=== PATIENT | male | born 1980 | race Two or more races ===

== ENCOUNTER 2021-10-26 19:57 | Inpatient (IN) | payer OTHER ==
[~2021-10-26] VITALS: Ht 175.3 cm; Wt 72.6 kg
[2021-10-26 22:46] LABS: BASOPHILS % 0.6 % (0.0-2.0); HEMATOCRIT. 47.2 % (42.0-52.0); HEMOGLOBIN. 16.2 g/dL (14.0-18.0); LYMPHOCYTES % 35.2 % (20.0-50.0); MEAN CORPUSCULAR HEMOGLOBIN 32.1 pg (28.0-32.0); MEAN CORPUSCULAR VOLUME 93.2 fL (80.0-94.0); MEAN PLATELET VOLUME 9.6 fl (7.4-10.4); MONOCYTES % 10.7 % (2.0-8.0); NEUTROPHILS % 51.5 % (40.0-76.0); PLATELET 224 x1000/uL (130-400); RED BLOOD CELL COUNT 5.06 mill/uL (4.7-6.1); RED CELL DISTRIBUTION WIDTH 12.7 % (11.6-14.6)
[2021-10-26 22:50] LABS: CHLORIDE 109 mEq/L (98-107)
[2021-10-26 22:53] LABS: ETHANOL BLOOD < 10 mg/dL
[2021-10-27] MEDS ORDERED: HYDROCODONE/ACETAMINOPHEN 5/325MG TABLET PO STA (01:45)
[2021-10-27] MEDS ORDERED: KETOROLAC 60MG/2ML VIAL IM STA (01:45)
[2021-10-27] MEDS ORDERED: ACETAMINOPHEN 325MG TABLET PO PRN (05:30)
[2021-10-27] MEDS ORDERED: LEVETIRACETAM 500MG PREMIX 100 ML IV ONE (05:45)
[2021-10-27] MEDS ORDERED: LORAZEPAM 2MG/ML CPJ IV NR (09:15)
[2021-10-27] MEDS ORDERED: LEVETIRACETAM 500 MG in SODIUM CHLORIDE 0.9% 100 ML IV SCH (09:30)
[2021-10-27] MEDS ORDERED: ONDANSETRON HCL 4MG/2ML INJ IV PRN (09:30)
[2021-10-27 15:51] VITALS: BP 105/67
[2021-10-27 18:00] VITALS: BP 105/66
[2021-10-27] MEDS: LEVETIRACETAM 500MG PREMIX 100 ML IV SCH (18:07)
[2021-10-27] MEDS: MORPHINE SULFATE 2 MG/ML CPJ (NOT FOR IM USE) IV PRN (18:25)
[2021-10-27 20:00] VITALS: BP 102/57
[2021-10-28] VITALS: BP 94/63
[2021-10-28] MEDS: MORPHINE SULFATE 2 MG/ML CPJ (NOT FOR IM USE) IV PRN ×2 (03:03→10:09)
[2021-10-28] MEDS: LEVETIRACETAM 500MG PREMIX 100 ML IV SCH (06:00)
[2021-10-28 08:00] VITALS: BP 102/65
[2021-10-28] MEDS ORDERED: PANTOPRAZOLE SODIUM 40 MG/VIAL IV SCH (09:00)
[2021-10-28] MEDS ORDERED: HYDR-4001 MT (11:18)
[2021-10-28] MEDS ORDERED: KEPP500 MT (11:19)
[2021-10-28 12:00] VITALS: BP 105/68
[2021-10-28 12:35] VITALS: BP 105/68
== END 2021-10-28 13:35 | disposition home or self-care (01) | DRG 115 ==
LOC: ER 19:57 → MICUSO 10-27 05:21 → 5WST 10-27 16:14
PROVIDERS: ADMIT Internal Medicine; ATTEND Internal Medicine
DX: S02.642A Fracture of ramus of left mandible, initial encounter for closed fracture (principal); G93.6 Cerebral edema; S06.2X9A Diffuse traumatic brain injury with loss of consciousness of unspecified duration, initial encounter; E87.8 Other disorders of electrolyte and fluid balance, not elsewhere classified; S02.612A Fracture of condylar process of left mandible, initial encounter for closed fracture; Y08.89XA Assault by other specified means, initial encounter; Y93.89 Activity, other specified; Y92.89 Other specified places as the place of occurrence of the external cause; Y99.8 Other external cause status; Z72.0 Tobacco use
CPT/HCPCS: 36415; 70486; 71045; 80053; 80307; 80320; 80329; 85025; 99285; C9113; J1885; J1953; J2060; J2270; J7040; G0480